=== PATIENT | male | born 1965 | race Caucasian/White ===

== ENCOUNTER 2017-03-26 04:19 | Day surgery (SDC) | payer BC ==
[2017-03-19 17:41] LABS: HEMATOCRIT 44.4 % (40.0-51.0); HEMOGLOBIN 14.8 g/dL (13.6-17.8)
[2017-03-19 17:48] LABS: BUN (BLOOD UREA NITROGEN) 18 MG/DL (6-23); CALCIUM, SERUM 8.7 MG/DL (8.5-10.4); CHLORIDE, SERUM 106 MMOL/L (96-112); CO2 (CARBON DIOXIDE) 25 MMOL/L (24-34); CREATININE 1.32 MG/DL (0.70-1.30); GFR AFRICAN AMERICAN 71 ML/MIN (>=60); GFR NON AFRICAN AMERICAN 61 ML/MIN (>=60); GLUCOSE, SERUM 158 MG/DL (60-99); POTASSIUM, SERUM 3.8 MMOL/L (3.5-5.3); SODIUM, SERUM 138 MMOL/L (135-148)
--- NOTE | ~2017-03-26 | OP ---
Record Of Operation [facility] [address] [place]. [address] NAME: ARELI ZAIDI : 61 [place] [facility] [place] [id number] AGE: 51 ADM/REG DATE : 03/26/17 MR#: [id number] REPORT SERV DATE: 03/26/17 DICTATED BY: CHETNA VILLAGOMEZ II DATE: 03/26/17 REPORT STATUS : Draft TRANSCRIBED BY: MODGabriella DATE: 03/26/17 DATE OF PROCEDURE: 03/26/2017 PREOPERATIVE DIAGNOSES: 1. 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 2. Multilevel spondylosis. POSTOPERATIVE DIAGNOSES: 1. 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 2. Multilevel spondylosis. PROCEDURE: 1. L4-L5 laminectomy. 2. Use of the microscope and stereotactic spinal imaging. FLUIDS: 1200 mL LR. ESTIMATED BLOOD LOSS: 10 mL. DRAINS: None. COMPLICATIONS: None. ANTIBIOTIC: Preoperatively. PREOPERATIVE HISTORY: This is a very friendly gentleman, who works at [employer]. He reports some minimal back pain, but predominantly buttock and leg pain. He has been treating with Dr. Jones and overall he and I discussed the options of continuing observation including medications, versus epidural steroid injections, versus surgery. Overall, he was very tired of dealing with it, as it has been going on for many months. We discussed the success rates of the surgery versus the failure rates. Risks discussed include, but are not limited to infection, abscess, CSF leak, and footdrop. We discussed a very small chance of medical complications such as heart attack. DESCRIPTION OF PROCEDURE: After informed consent was obtained, the patient was brought to the operating room at his request, and general anesthesia achieved. He was placed in prone position. The back was prepped and draped in a sterile fashion. The stereotactic spinal pin was placed into the left iliac crest and the intraoperative CT scan completed. Stereotactic guidance was then used throughout the case. Next, the minimally invasive incision was performed on the right at L4-5 and the minimally invasive quadrant retractor was placed. The microscope was brought into place and under microscopic visualization, the spinal laminar junction was now taken down with the high- speed bur. The central canal was now decompressed. The ligamentum flavum was found to be moderately hypertrophic causing significant compression of the dura. Next, the ligament was then removed from the central canal in the right lateral recess. We also removed some of Record Of Operation [address] [place]. [facility] [place]. [id number] NAME: ARELI ZAIDI : 61 [place] [facility] [place] [id number] AGE: 51 ADM/REG DATE : 03/26/17 MR#: [id number] REPORT SERV DATE: 03/26/17 DICTATED BY: CHETNA VILLAGOMEZ II DATE: 03/26/17 REPORT STATUS : Draft TRANSCRIBED BY: JAZMÍN DATE: 03/26/17 the ligament on the left side to decompress the left lateral recess. Next, the high-speed bur was used to initiate further partial facetectomy. The portions of the medial facet were now removed and the L5 nerve root more adequately decompressed. Next, we then retracted the L5 nerve root. The disk osteophyte complex was found to be fairly at this point non-intrusive onto the nerve root. There was primarily the partially calcified disk protrusion. There was fortunately no free fragment noted. At this point, the area was irrigated. Overall, the hemostasis was achieved with Gelfoam and bipolar electrocautery. Standard closure was performed, and the patient was then extubated, and transferred to PACU in stable condition. QAMAR/JAZMÍN Chetna Villagomez II, M.D. / [id number] CC: Mazin Faust II, M.D.
[~2017-03-26 04:19] MED LIST: ATORVASTATIN PO; CELEXA10 MG/5 ML PO; NAP500 PO; PRILO PO
== END 2017-03-26 12:30 | disposition home or self-care (01) ==
LOC: SDC 04:19
PROVIDERS: Orthopaedic Surgery
PROC: 01NB0ZZ Release Lumbar Nerve, Open Approach (ICD-10-PCS; principal; 2017-03-26 05:45)
DX: M51.26 Other intervertebral disc displacement, lumbar region (principal); M47.816 Spondylosis without myelopathy or radiculopathy, lumbar region; M48.06 Spinal stenosis, lumbar region; J45.909 Unspecified asthma, uncomplicated; K21.9 Gastro-esophageal reflux disease without esophagitis; E78.00 Pure hypercholesterolemia, unspecified; E66.9 Obesity, unspecified; Z68.39 Body mass index [BMI] 39.0-39.9, adult; Z79.1 Long term (current) use of non-steroidal anti-inflammatories (NSAID); Z79.899 Other long term (current) drug therapy; Z98.890 Other specified postprocedural states
CPT/HCPCS: 80048; 85014; 85018; 88304; 88311; 93005; A9270-GY; J0690; J1030; J1170; J2250; J2405; J2710; J3010